=== PATIENT | female | born 1975 | race Caucasian/White ===

== ENCOUNTER 2016-11-11 14:00 | Emergency (ER) | payer SELFPAY ==
[~2016-11-11] VITALS: Ht 157.5 cm; Wt 87.5 kg
[~2016-11-11 14:00] MED LIST: ACTONEL; DIOVAN; ESCI5TAB; HYDR25TA6; METF500T4
[2016-11-11 14:03] VITALS: Ht 157.5 cm; Wt 87.5 kg
== END 2016-11-11 14:03 | disposition left against medical advice (07) ==
LOC: FTE 14:00
DX: Z53.21 Procedure and treatment not carried out due to patient leaving prior to being seen by health care provider (principal)

== ENCOUNTER 2018-02-10 18:58 | Emergency (ER) | END 2018-02-10 22:07 | disposition home or self-care (01) ==